=== PATIENT | male | born 1965 | race Caucasian/White ===

== ENCOUNTER 2017-04-01 21:27 | Emergency (ER) | payer MEDICAID ==
[~2017-04-01] VITALS: Ht 177.8 cm; Wt 73.0 kg
[2017-04-01] MEDS ORDERED: HYDROCODONE/ACETAMINOPHEN 5/325MG TABLET PO ONE (22:45)
[2017-04-02 00:20] VITALS: BP 131/83
== END 2017-04-02 00:52 | disposition home or self-care (01) ==
LOC: ER 21:51
DX: M54.2 Cervicalgia (principal); M54.9 Dorsalgia, unspecified; Y92.480 Sidewalk as the place of occurrence of the external cause
CPT/HCPCS: 99283